=== PATIENT | male | born 1950 | race Hispanic/Latino ===

== ENCOUNTER 2017-11-15 03:16 | Inpatient (IN) | payer BC ==
--- NOTE | 2017-11-15 03:50 | ED PDOC ---
Arrival/HPI - General Chief Complaint: Chest Pain Time Seen by Provider: 11/15/17 03:19 Historian: Patient - History of Present Illness Narrative History of Present Illness (Text): 11/15/17 03:49 Zoran Santiago is a 66 year old male, who denies any significant past medical history, who presents to the Emergency department complaining of chest pain. Patient states he has been experiencing left-sided chest pain radiating to his left shoulder/back for the past 2 days but worsened tonight. Patient states pain is worse with deep inspiration. Patient states he originally attributed symptoms to gas and took Gas-X, but denies any significant relief. Patient denies any fever, chills, shortness of breath, nausea, vomiting, neck pain, headache, dizziness, or any other complaints. Symptom Onset: Gradual Symptom Course: Unchanged Activities at Onset: Light Context: Home Past Medical History - Provider Review Nursing Documentation Reviewed: Yes - Infectious Disease Hx of Infectious Diseases: None - Tetanus Immunization Tetanus Immunization: Unknown - Psychiatric Hx Depression: No Hx Emotional Abuse: No Hx Physical Abuse: No Hx Substance Use: No - Anesthesia Hx Anesthesia: No Hx Anesthesia Reactions: No Hx Malignant Hyperthermia: No - Suicidal Assessment Feels Threatened In Home Enviroment: No Family/Social History - Physician Review Nursing Documentation Reviewed: Yes Family/Social History: Unknown Family HX Smoking Status: Never Smoked Hx Alcohol Use: Yes Frequency of alcohol use: Socially Hx Substance Use: No Hx Substance Use Treatment: No Allergies/Home Meds Allergies/Adverse Reactions: Allergies No Known Allergies Allergy (Verified 11/15/17 03:29) Home Medications: Home Meds Medication Instructions Recorded Confirmed No Known Home Med 11/15/17 11/15/17 Review of Systems - Physician Review All systems were reviewed & negative as marked: Yes - Review of Systems Constitutional: Normal. absent: Fevers Eyes: Normal ENT: Normal Respiratory: Normal. absent: SOB, Cough Cardiovascular: Chest Pain Gastrointestinal: Normal. absent: Abdominal Pain, Diarrhea, Nausea, Vomiting Genitourinary Male: Normal. absent: Dysuria, Frequency, Hematuria, Urinary Output Changes Musculoskeletal: Back Pain. absent: Neck Pain Skin: Normal. absent: Rash Neurological: Normal. absent: Headache, Dizziness Endocrine: Normal Hemo/Lymphatic: Normal Psychiatric: Normal Physical Exam Vital Signs Reviewed: Yes Vital Signs Temp Pulse Resp BP Pulse Ox 03/12/18 03:18 98.5 F 86 17 140/90 96 Temperature: Afebrile Blood Pressure: Normal Pulse: Regular Respiratory Rate: Normal Appearance: Positive for: Well-Appearing, Non-Toxic, Comfortable Pain Distress: None Mental Status: Positive for: Alert and Oriented X 3 - Systems Exam Head: Present: Atraumatic, Normocephalic Pupils: Present: PERRL Extroacular Muscles: Present: EOMI Conjunctiva: Present: Normal Mouth: Present: Moist Mucous Membranes Neck: Present: Normal Range of Motion Respiratory/Chest: Present: Clear to Auscultation, Good Air Exchange. No: Respiratory Distress, Accessory Muscle Use Cardiovascular: Present: Regular Rate and Rhythm, Normal S1, S2. No: Murmurs Abdomen: Present: Normal Bowel Sounds. No: Tenderness, Distention, Peritoneal Signs Back: Present: Normal Inspection Upper Extremity: Present: Normal Inspection. No: Cyanosis, Edema Lower Extremity: Present: Normal Inspection. No: Edema Neurological: Present: GCS=15, CN II-XII Intact, Speech Normal Skin: Present: Warm, Dry, Normal Color. No: Rashes Psychiatric: Present: Alert, Oriented x 3, Normal Insight, Normal Concentration Medical Decision Making ED Course and Treatment: 11/15/17 03:49 Impression: 66 year old male complaining of left-sided chest pain for 2 days, worse tonight. Plan: -- EKG -- Chest X-ray -- Labs, cardiac enzymes, D-dimer -- Reassess and disposition Progress Notes: Reviewed EKG, NSR at 87 bpm. Inferior infarct. Non-specific ST/T wave changes. 11/15/17 04:30 Chest X-ray reviewed, shows left pleural effusion. 11/15/17 05:20 CTA Chest shows: Pulmonary arteries: No CT evidence for pulmonary embolus. Aorta: No acute findings. No thoracic aortic aneurysm. Lungs: Bibasilar left more than right, right middle lobe and lingular nonspecific infiltrates and consolidation are present, consistent with atelectasis or pneumonia. Pleural space: Small left pleural effusion. No pneumothorax. Heart: Small amount of fluid in the superior pericardial recess. Mediastinum: Possible small hiatal hernia. Thyroid: Mild prominence of thyroid gland. Bones/joints: No acute fracture. No dislocation. Soft tissues: Unremarkable. Lymph nodes: Small hilar lymph nodes. Spleen: Left upper quadrant splenule. Adrenals: Normal right adrenal gland. Left adrenal gland is incompletely seen. Kidneys and ureters: Bilateral perinephric scarring may be a sequela of infection, inflammation or aging. Stomach and bowel: Large amount of stool in the colon. Correlation with patient' s clinical history of constipation is recommended. IMPRESSION: 1. No CT evidence for pulmonary embolus. 2. Small left pleural effusion. 3. Bibasilar left more than right, right middle lobe and lingular nonspecific infiltrates and consolidation are present, consistent with atelectasis or pneumonia. Correlation with internal medicine evaluation and further workup or followup as recommended by patient's clinical data. 11/15/17 05:[address] Chang, who is aware and agrees with plan. Accepts pt in to her service. Pt will go to Telemetry observation for chest pain, pleural effusions and pneumonia. Requests Dr. Metcalf on consult. - Lab Interpretations Lab Results: 11/15/17 03:28 11/15/17 03:28 Lab Results 11/15/17 03:28: D-Dimer, Quantitative < 200 11/15/17 03:28: Sodium 138, Potassium 4.1, Chloride 101, Carbon Dioxide 27, Anion Gap 14, BUN 17, Creatinine 1.0, Est GFR ( Amer) > 60, Est GFR (Non- Af Amer) > 60, Random Glucose 101, Calcium 9.9, Total Bilirubin 0.9, AST 46, ALT 41, Alkaline Phosphatase 98, Lactate Dehydrogenase 439, Total Creatine Kinase 88, Troponin I < 0.01, Total Protein 7.5, Albumin 4.1, Globulin 3.4, Albumin/Globulin Ratio 1.2 11/15/17 03:28: PT 11.6, INR 1.02, APTT 31.0 11/15/17 03:28: WBC 9.5, RBC 4.56, Hgb 13.7 L, Hct 40.3 L, MCV 88.4, MCH 30.0, MCHC 34.0, RDW 13.5, Plt Count 201, MPV 9.7, Gran % 61.2, Lymph % (Auto) 25.7, Ellis % (Auto) 11.4 H, Eos % (Auto) 1.5, Baso % (Auto) 0.2, Gran # 5.82, Lymph # (Auto) 2.4, Ellis # (Auto) 1.1 H, Eos # (Auto) 0.1, Baso # (Auto) 0.02 I have reviewed the lab results: Yes - RAD Interpretation Radiology Orders: 11/15/17 03:38 CHEST PORTABLE [RAD] Stat 11/15/17 04:32 ANGIO CHEST PE PROTOCOL [CT] Stat Civil Service Worker: ED Physician, Radiologist - EKG Interpretation Interpreted by ED Physician: Yes Type: 12 lead EKG - Medication Orders Current Medication Orders: Ceftriaxone Sodium (Rocephin 1 Gram Ivpb) 1 gm in 100 mls @ 200 mls/hr IV ONCE STA PRN Reason: Protocol Stop: 11/15/17 05:55 Azithromycin (Zithromax 500mg In Ns) 500 mg in 250 mls @ 166.667 mls/hr IV STAT STA PRN Reason: Protocol Stop: 11/15/17 06:55 Sodium Chloride (Sodium Chloride 0.9%) 1,000 mls @ 100 mls/hr IV .Q10H STA Stop: 11/15/17 15:44 Discontinued Medications Aspirin (Aspirin) 325 mg PO ONCE STA Stop: 11/15/17 04:36 Last Admin: 11/15/17 04:38 Dose: 325 mg - Peteibe Statement The provider has reviewed the documentation as recorded by the Peteibmadi Grady All medical record entries made by the Peteibmadi were at my direction and personally dictated by me. I have reviewed the chart and agree that the record accurately reflects my personal performance of the history, physical exam, medical decision making, and the department course for this patient. I have also personally directed, reviewed, and agree with the discharge instructions and disposition. Disposition/Present on Arrival - Present on Arrival Any Indicators Present on Arrival: No History of DVT/PE: No History of Uncontrolled Diabetes: No Urinary Catheter: No History of Decub. Ulcer: No History Surgical Site Infection Following: None - Disposition Have Diagnosis and Disposition been Completed?: Yes Diagnosis: Chest pain, Pleural effusion, Pneumonia Disposition: HOSPITALIZED Disposition Time: 05:48 Patient Plan: Observation Condition: STABLE Discharge Instructions (ExitCare): Chest Pain (ED) Forms: [employer] [place] (Panamanian)
[2017-11-15 03:55] LABS: BASO # 0.02 K/mm3 (0.0-2.0); BASO % 0.2 % (0.0-3.0); EOS # 0.1 (0.0-0.7); EOS % 1.5 % (1.5-5.0); GRAN # 5.82 (1.4-6.5); GRAN % 61.2 % (50.0-68.0); HEMOGLOBIN 13.7 g/dL (14.0-18.0); LYMPH # 2.4 (1.2-3.4); LYMPH % 25.7 % (22.0-35.0); MEAN CELL VOLUME 88.4 fl (80.0-105.0); MEAN PLATELET VOLUME 9.7 fl (7.0-11.0); MONO # 1.1 (0.1-0.6); MONO % 11.4 % (1.0-6.0); RBC 4.56 10^6/uL (3.5-6.1); RED CELL DISTRIBUTION WIDTH 13.5 % (11.5-14.5); WHITE BLOOD COUNT 9.5 10^3/ul (4.5-11.0)
[2017-11-15 04:07] LABS: INR 1.02 (0.93-1.08); PROTHROMBIN TIME 11.6 SECONDS (9.4-12.5)
[2017-11-15 04:21] LABS: ALB/GLOB RATIO 1.2 (1.1-1.8); ALBUMIN 4.1 g/dL (3.0-4.8); ALT/SGPT 41 U/L (7-56); AST/SGOT 46 U/L (17-59); BLOOD UREA NITROGEN 17 mg/dL (7-21); CALCIUM 9.9 mg/dL (8.4-10.5); GFR AFRICAN-AMERICAN > 60; GFR NON-AFRICAN AMERICAN > 60
[2017-11-15 04:34] LABS: TROPONIN I < 0.01 ng/mL
[2017-11-15] MEDS ORDERED: Iodixanol 320 MG/ML 100 ML BOTTLE IV ONE (04:37)
--- NOTE | 2017-11-15 05:17 | CT ---
EXAM: CT Chest With Intravenous Contrast CLINICAL HISTORY: 66 years old, male; Pain; Chest pain TECHNIQUE: Axial computed tomography images of the chest with intravenous contrast during the arterial phase of enhancement. All CT scans at this facility use one or more dose reduction techniques, viz.: automated exposure control; ma/kV adjustment per patient size (including targeted exams where dose is matched to indication; i.e. head); or iterative reconstruction technique. 676 images are submitted. Coronal reformatted images were created and reviewed. CONTRAST: 96 mL of OMNI 350 administered intravenously. COMPARISON: No relevant prior studies available. FINDINGS: Pulmonary arteries: No CT evidence for pulmonary embolus. Aorta: No acute findings. No thoracic aortic aneurysm. Lungs: Bibasilar left more than right, right middle lobe and lingular nonspecific infiltrates and consolidation are present, consistent with atelectasis or pneumonia. Pleural space: Small left pleural effusion. No pneumothorax. Heart: Small amount of fluid in the superior pericardial recess. Mediastinum: Possible small hiatal hernia. Thyroid: Mild prominence of thyroid gland. Bones/joints: No acute fracture. No dislocation. Soft tissues: Unremarkable. Lymph nodes: Small hilar lymph nodes. Spleen: Left upper quadrant splenule. Adrenals: Normal right adrenal gland. Left adrenal gland is incompletely seen. Kidneys and ureters: Bilateral perinephric scarring may be a sequela of infection, inflammation or aging. Stomach and bowel: Large amount of stool in the colon. Correlation with patient's clinical history of constipation is recommended. IMPRESSION: 1. No CT evidence for pulmonary embolus. 2. Small left pleural effusion. 3. Bibasilar left more than right, right middle lobe and lingular nonspecific infiltrates and consolidation are present, consistent with atelectasis or pneumonia. Correlation with internal medicine evaluation and further workup or followup as recommended by patient's clinical data.
[2017-11-15] MEDS ORDERED: Azithromycin 500MG/NS 250ml 500 MG/250 ML BAG IV STA (05:26)
[2017-11-15] MEDS ORDERED: cefTRIAXone 1 gm 1 GM/100 ML BAG IV STA (05:26)
[2017-11-15] MEDS ORDERED: Sodium Chloride 0.9% 1,000 ML IV STA (05:45)
--- NOTE | 2017-11-15 10:09 | CARD ---
APPROVED REPORT EKG Measurement Heart [id number] <Conclusion> Normal sinus rhythm Small q in 3,F, Cannot rule out Inferior infarct, age undetermined
--- NOTE | 2017-11-15 10:26 | RAD ---
HISTORY: CHEST PAIN COMPARISON: No prior. FINDINGS: LUNGS: No active pulmonary disease. PLEURA: No significant pleural effusion identified, no pneumothorax apparent. CARDIOVASCULAR: Normal. OSSEOUS STRUCTURES: No significant abnormalities. VISUALIZED UPPER ABDOMEN: Normal. OTHER FINDINGS: None. IMPRESSION: No active disease.
[2017-11-15 14:39] VITALS: BMI 29.4
[2017-11-15] MEDS ORDERED: Pneumococcal 23-Valent Vaccine IM ONE (14:39)
[2017-11-15] MEDS ORDERED: Influenza Vaccine 60 mcg/0.5 mL SYR (4YR UP) IM ONE (14:39)
[2017-11-15 20:40] LABS: BLOOD UREA NITROGEN 16 mg/dL (7-21); CALCIUM 9.7 mg/dL (8.4-10.5); GFR AFRICAN-AMERICAN > 60; GFR NON-AFRICAN AMERICAN > 60
[2017-11-15] MEDS: Naproxen 550 mg Tab PO SCH (20:46)
[2017-11-15 20:52] LABS: TROPONIN I < 0.01 ng/mL
[2017-11-15 21:11] LABS: ARTERIAL BLOOD GAS HCO3 25.2 mmol/L (21-28); ARTERIAL BLOOD GAS HEMOGLOBIN 12.7 g/dL (11.7-17.4); ARTERIAL BLOOD GAS O2 CAPACITY 17.9 mL/dl (16-24); ARTERIAL BLOOD GAS O2 CONTENT 17.1 ML/dl (15-23); ARTERIAL BLOOD GAS O2 SAT 95.7 % (95-98); ARTERIAL BLOOD GAS PCO2 38 mm/Hg (35-45); ARTERIAL BLOOD GAS PH 7.43 (7.35-7.45); ARTERIAL BLOOD GAS TCO2 26.4 mmol.L (22-28)
--- NOTE | 2017-11-15 22:52 | CON ---
DATE: 11/15/2017 LOCATION: Patient presently in emergency room 600, bed 1. REASON FOR CONSULTATION: Chest pain. HISTORY OF PRESENT ILLNESS: A 66-year-old male came to the emergency room complaining of pain in the left side of the abdomen and left axillary line of the left lower chest. Patient says with breathing, pain was getting worse. Also, if he lies on the left side, pain gets worse. Patient denies any prior history of angina or any cardiac symptoms. This pain has been there for 2 days. Patient denies any fever, cough, expectoration, any chills. Denies any PND or swelling of legs. PAST MEDICAL HISTORY: Not significant. PERSONAL HISTORY: Denies smoking, drinks only socially. ALLERGIES: DENIES ANY ALLERGIES. MEDICATIONS: Patient is not on any medication. FAMILY HISTORY: Not significant. PHYSICAL EXAMINATION: VITAL SIGNS: Blood pressure 120/80, respirations 18, pulse 78, temperature 98. HEENT: Head: Normocephalic. Eyes: Pupils normal, conjunctivae normal. Nose and Throat: Normal. NECK: JVP low. Carotid equal. THORAX: AP diameter normal. LUNGS: No significant rales. Slightly diminished breath sound on the bases. CARDIOVASCULAR: S1 and S2. ABDOMEN: Soft. No tenderness. No organomegaly. EXTREMITIES: No clubbing. No cyanosis. LABORATORY DATA: WBC 9.5, hemoglobin 13.7, hematocrit 40.3, platelet 201. Sodium 138, potassium 4.1, calcium 9.9. AST and ALT normal. Troponin less than 0.01. Total protein and albumin normal. EKG showed regular sinus rhythm. Chest x-ray done with no active pulmonary disease. CT of the chest shows some mild left pleural effusion, bibasilar left more than right middle lobe and lingular nonspecific infiltrate and consolidation are present consistent with atelectasis or pneumonia. DIAGNOSES: Chest and abdominal pain, atypical for cardiac origin. Patient probably has pneumonia. PLAN: We will do an echocardiogram. Patient has been given ceftriaxone 1 g IV and azithromycin 500 mg IV. We will check lipid profile and TSH. Patient's NT-proB natriuretic peptide is 45.5. Continue antibiotics. We will follow. Rosalio Sabillon MD
--- NOTE | 2017-11-16 03:03 | CP.PCM.PN ---
Subjective - Date & Time of Evaluation Date of Evaluation: 11/16/17 Time of Evaluation: 02:56 - Subjective Subjective: callled by nurse pt has pause of 5.26 sedonds. pt had earlier . pause of 3.05 seconds .bmp ca mg ekg abg and cardiac iso was done. pt was asymptomatic pt is admitted for cp left sided and left sided abdominal pain. Objective - Vital Signs/Intake and Output Vital Signs (last 24 hours): Temp Pulse Resp BP Pulse Ox 97.4 F L 61 18 104/62 95 11/16/17 00:20 11/16/17 00:20 11/16/17 00:20 11/16/17 00:20 11/16/17 00:20 - Medications Medications: Current Medications Acetaminophen (Tylenol 325mg Tab) 650 mg PO Q6H PRN PRN Reason: Fever >100.4 F Ceftriaxone Sodium (Rocephin 1 Gram Ivpb) 1 gm in 100 mls @ 100 mls/hr IVPB DAILY EFE PRN Reason: Protocol Azithromycin (Zithromax 500mg In Ns) 500 mg in 250 mls @ 167 mls/hr IVPB DAILY EFE PRN Reason: Protocol Naproxen (Anaprox Ds) 550 mg PO BID [facility] Last Admin: 11/15/17 20:46 Dose: 550 mg Pantoprazole Sodium (Protonix Ec Tab) 40 mg PO 0630 [facility] - Labs Labs: 11/15/17 20:22 PT 11.6 SECONDS (9.4-12.5) 11/15/17 03:28 INR 1.02 (0.93-1.08) 11/15/17 03:28 APTT 31.0 Seconds (25.1-36.5) 11/15/17 03:28 - Constitutional Appears: No Acute Distress - Head Exam Head Exam: NORMOCEPHALIC - Eye Exam Pupil Exam: PERRL - ENT Exam ENT Exam: Mucous Membranes Moist - Neck Exam Neck Exam: Full ROM - Respiratory Exam Respiratory Exam: Clear to Ausculation Bilateral - Cardiovascular Exam Cardiovascular Exam: RRR, +S1, +S2 - GI/Abdominal Exam GI & Abdominal Exam: Soft - Rectal Exam Rectal Exam: Deferred - Extremities Exam Extremities Exam: Full ROM - Neurological Exam Neurological Exam: Awake - Psychiatric Exam Psychiatric exam: Normal Affect - Skin Skin Exam: Dry Assessment and Plan - Assessment and Plan (Free Text) Assessment: multiple pauses . pt needs to be on stand by external pacer. Plan: called dr ramirez to evaluate for icu.
--- NOTE | 2017-11-16 03:47 | CP.PCM.CON ---
<Nadiya Reyes - Last Filed: 11/16/17 04:08> History of Present Illness - History of Present Illness History of Present Illness: PGY-[address] Flores ICU consult: Sinus pause Mr Santiago, 66 M, came to emergency room c/o pain in left abdomen, left axillary line of left lower chest since Wednesday. The pain was worse during inhalation. pt denies any history of angina, palpitation, dizziness, fever, chills, leg swelling. During the hospital stay, VS stable. CBC, CMP unremarkable. D-Dimer negative. trops negative x 2. Pro-BNP 45.5. Procalc 0.1. Flu screen negative. CXR showed Small left pleural effusion. CTA of chest showed bibasilar infiltrate and consolidation, L > R, R middle lobe and lingular, likely pneumonia. He was on Azithromycin and ceftriaxone. House Doc at night was called by nurse that pt has a pause of 5.26 seconds on tele monitor. Earlier the evening, Pt had a prior pause of 3.05 seconds. BMP, Ca , Mg, ABG, cardiac iso, ekg were done, which were negative. Pt was AAOx3 during interview. Denies headache, fever, chills, chest pain, SOB, N/V, diaphoresis, dizziness. PMH: None PSH: Never FH: Denies family history of cancer SH: Denies smoking, drinks only socially All: NKDA Med: None PMD: Dr. Kg Burdick Past Patient History - Infectious Disease Hx of Infectious Diseases: None - Tetanus Immunizations Tetanus Immunization: Unknown - Past Social History Smoking Status: Never Smoked - HEENT Hx HEENT Problems: Yes (eyeglasses) - MUSCULOSKELETAL/RHEUMATOLOGICAL Hx Falls: No - PSYCHIATRIC Hx Substance Use: No - SURGICAL HISTORY Hx Surgeries: No - ANESTHESIA Hx Anesthesia: No Hx Anesthesia Reactions: No Hx Malignant Hyperthermia: No Meds Allergies/Adverse Reactions: Allergies Allergy/AdvReac Type Severity Reaction Status Date / Time No Known Allergies Allergy Verified 11/15/17 03:29 - Medications Medications: Current Medications Acetaminophen (Tylenol 325mg Tab) 650 mg PO Q6H PRN PRN Reason: Fever >100.4 F Ceftriaxone Sodium (Rocephin 1 Gram Ivpb) 1 gm in 100 mls @ 100 mls/hr IVPB DAILY EFE PRN Reason: Protocol Azithromycin (Zithromax 500mg In Ns) 500 mg in 250 mls @ 167 mls/hr IVPB [facility]ILY [facility] PRN Reason: Protocol Naproxen (Anaprox Ds) 550 mg PO BID [facility] Last Admin: 11/15/17 20:46 Dose: 550 mg Pantoprazole Sodium (Protonix Ec Tab) 40 mg PO 0630 [facility] Physical Exam - Constitutional Appears: No Acute Distress - Head Exam Head Exam: ATRAUMATIC, NORMAL INSPECTION, NORMOCEPHALIC - Eye Exam Eye Exam: EOMI, Normal appearance, PERRL - ENT Exam ENT Exam: Mucous Membranes Moist - Neck Exam Additional comments: supple - Respiratory Exam Respiratory Exam: Clear to Auscultation Bilateral, NORMAL BREATHING PATTERN. absent: Rales, Rhonchi, Wheezes - Cardiovascular Exam Cardiovascular Exam: REGULAR RHYTHM, +S1, +S2 - GI/Abdominal Exam GI & Abdominal Exam: Normal Bowel Sounds, Soft. absent: Tenderness - Extremities Exam Extremities exam: Negative for: calf tenderness, pedal edema - Neurological Exam Neurological exam: Alert, Oriented x3 - Psychiatric Exam Psychiatric exam: Normal Affect, Normal Mood - Skin Skin Exam: Dry, Warm Results - Vital Signs Recent Vital Signs: Last Vital Signs Temp 97.4 F L 11/16/17 02:20 Pulse 61 11/16/17 02:20 Resp 18 11/16/17 02:20 BP 104/62 11/16/17 02:20 Pulse Ox 95 11/16/17 02:20 - Labs Result Diagrams: 11/15/17 03:28 11/15/17 20:22 Labs: Laboratory Results - last 24 hr 11/15/17 11/15/17 20:22 21:07 pCO2 38 pO2 73.0 L HCO3 25.2 ABG pH 7.43 ABG Total CO2 26.4 ABG O2 Saturation 95.7 ABG O2 Content 17.1 ABG Base Excess 1.0 ABG Hemoglobin 12.7 ABG Carboxyhemoglobin 0.4 L POC ABG HHb (Measured) 4.3 ABG Methemoglobin 0.0 ABG O2 Capacity 17.9 Hgb O2 Saturation 95.3 FiO2 21.0 Sodium 139 Potassium 3.9 Chloride 102 Carbon Dioxide 28 Anion Gap 13 BUN 16 Creatinine 1.1 Est GFR ( Amer) > 60 Est GFR (Non-Af Amer) > 60 Random Glucose 145 H Calcium 9.7 Magnesium 2.0 Lactate Dehydrogenase 377 Total Creatine Kinase 75 Troponin I < 0.01 Assessment & Plan - Assessment and Plan (Free Text) Plan: Mr Santiago, 66 M, came to emergency room c/o pain in left abdomen, left axillary line of left lower chest since Wednesday. Pt likely has atypical chest pain, pleuritis in nature. CTA of chest showed bibasilar infiltrate and consolidation , L > R, R middle lobe and lingular, likely pneumonia. He was on Azithromycin and ceftriaxine. He was found to have two episodes of sinus pause tonight: (1) a pause of 5.26 seconds on tele monitor. (2) Earlier the evening, Pt had a prior pause of 3.05 seconds. BMP, Ca, Mg, ABG, cardiac iso, ekg were done, which were negative. Pt was AAOx3 during interview without any acute complaint. Repeat BP 111/71, SaO2 95% Sinus Pause, 5 seconds, asymptomatic Vs complete heart block - Hold Azithromycin, for possible QT prolong effect - electrolytes within normal limit - standby external pacing, but do not pace - continue monitor on telemetry - Per Dr. Meeks: If the 3rd pause happens, put dopamine gtt on 3 mcg. It could be triggered by obstructive sleep apnea. - May need to transfer to ICU for the infusion - Repeat EKG s/r/d/w Dr. Flores <Chuck Flores Q - Last Filed: 11/16/17 05:34> Meds - Medications Medications: Current Medications Acetaminophen (Tylenol 325mg Tab) 650 mg PO Q6H PRN PRN Reason: Fever >100.4 F Ceftriaxone Sodium (Rocephin 1 Gram Ivpb) 1 gm in 100 mls @ 100 mls/hr IVPB DAILY [facility] PRN Reason: Protocol Naproxen (Anaprox Ds) 550 mg PO BID [facility] Last Admin: 11/15/17 20:46 Dose: 550 mg Pantoprazole Sodium (Protonix Ec Tab) 40 mg PO 0630 [facility] Results - Vital Signs Recent Vital Signs: Last Vital Signs Temp 97.4 F L 11/16/17 02:20 Pulse 59 L 11/16/17 05:01 Resp 18 11/16/17 02:20 BP 104/62 11/16/17 02:20 Pulse Ox 95 11/16/17 02:20 - Labs Result Diagrams: 11/15/17 03:28 11/15/17 20:22 Labs: Laboratory Results - last 24 hr 11/15/17 11/15/17 20:22 21:07 pCO2 38 pO2 73.0 L HCO3 25.2 ABG pH 7.43 ABG Total CO2 26.4 ABG O2 Saturation 95.7 ABG O2 Content 17.1 ABG Base Excess 1.0 ABG Hemoglobin 12.7 ABG Carboxyhemoglobin 0.4 L POC ABG HHb (Measured) 4.3 ABG Methemoglobin 0.0 ABG O2 Capacity 17.9 Hgb O2 Saturation 95.3 FiO2 21.0 Sodium 139 Potassium 3.9 Chloride 102 Carbon Dioxide 28 Anion Gap 13 BUN 16 Creatinine 1.1 Est GFR ( Amer) > 60 Est GFR (Non-Af Amer) > 60 Random Glucose 145 H Calcium 9.7 Magnesium 2.0 Lactate Dehydrogenase 377 Total Creatine Kinase 75 Troponin I < 0.01 Attending/Attestation - Attestation I have personally seen and examined this patient.: Yes I have fully participated in the care of the patient.: Yes I have reviewed all pertinent clinical information: Yes Notes (Text): 11/16/17 05:15 I agree with the above mentioned note and exam by the resident with the addition /exception of the followin66 y/o male without a significant PMHx was admitted to the hospital for atypical chest pain. He was found to have atelectasis and ?consolidation, he was being treated for pneumonia with IV Antibiotics. I was asked to evaluate the patient by Dr. Fabiola Lowery due to the patient having 2 episodes of sinus pause. The first lasting approximately 2 seconds and the next a little over 4 seconds. The patient reports being asleep all night and offers no complaints at all. He specifically denied any complaints of new chest pain, palpitations, light headedness, dizziness or shortness of breath. Electrolytes are WNL; EKG shows no acute changes and the pause on the telemetry strip still conducted p-waves. Recommend holding azithromycin to prevent prolongation of QT (slightly over 400 on the last EKG), continue monitoring on telemetry. Case was discussed between the medical economics consultant and Dr. Sabillon who recommended a fixed dose dopaminedrip in the event of a 3rd sinus pause. Asymptomatic sinus pause does not require treatment. The patient does not require a transfer to the ICU and may remain on the telemetry floor.
[2017-11-16] MEDS: Pantoprazole 40 mg EC Tab PO SCH (06:04)
[2017-11-16 06:45] LABS: HDL CHOLESTEROL 59 mg/dL (29-60)
--- NOTE | 2017-11-16 06:53 | HP ---
HISTORY OF PRESENT ILLNESS: The patient is 66-year-old male who came to emergency room because of left-sided chest pain, going through the chest towards the back, radiating to the left shoulder and the arm. Denies any palpitation. Does complain of pain getting worse on taking deep breath. Denies any fever. No history of chills. No nausea or vomiting, no diarrhea. PAST MEDICAL HISTORY: Not significant. MEDICATIONS: He does not take any medication at home. ALLERGIES: NOT ALLERGIC TO ANY MEDICATION. SOCIAL HISTORY: Denies smoking; drinking - socially drinks only. REVIEW OF SYSTEMS: Significant for left-sided chest pain. PHYSICAL EXAMINATION: GENERAL: He is awake, alert and able to communicate. VITAL SIGNS: He is afebrile, pulse 76, respirations 20, blood pressure 127/85. LUNGS: Bilateral fair airflow. HEART: S1 and S2 audible. ABDOMEN: Soft, nontender. No rebound. No guarding. NEUROLOGIC: He is awake, alert, oriented and communicative. LABORATORY DATA: WBC 9.5, hemoglobin 13.7, hematocrit 40.3, platelet . PT 11.6, INR 1.02. Chemistry: Sodium 138, potassium 4.1, chloride 101, CO2 is 17, creatinine 1.0. Blood sugar . LFTs are within normal limits. Flu test is negative. CT angio is unremarkable. EKG, normal sinus rhythm. X-ray chest is unremarkable. ASSESSMENT: 1. Chest pain, probably noncardiac. 2. Left-sided infiltrate secondary to community-acquired pneumonia. 3. Right middle lobe and lingular infiltrate; however, procalcitonin is negative. PLAN: Patient has been empirically started on IV antibiotics per ID. We will monitor. We will follow up troponin in the a.m. I will also start him on antiinflammatory, and echocardiogram has been requested, and ID consult by Dr. Metcalf and Cardiology consult by has been requested. Stella Chang MD
[2017-11-16 06:57] LABS: LDL CHOLESTEROL 90 mg/dL (0-129)
[2017-11-16] MEDS ORDERED: Azithromycin 500MG/NS 250ml 500 MG/250 ML BAG IVPB SCH (10:00)
[2017-11-16] MEDS: cefTRIAXone 1 gm 1 GM/100 ML BAG IVPB SCH (10:07)
[2017-11-16] MEDS: Naproxen 550 mg Tab PO SCH ×2 (10:07→18:25)
--- NOTE | 2017-11-16 15:04 | PN ---
DATE: 11/16/2017 LOCATION: Patient in room 370, bed 2. REASON FOR CONSULTATION: Chest pain. HISTORY OF PRESENT ILLNESS: This is a 66-year-old male who was admitted to the Emergency Room complaining of left-sided abdominal and chest pain mostly with inspiration. Patient had no prior history of any cardiac problem. Patient, during the night, monitor showed a pause of 3 seconds and 3.5 seconds, asymptomatic. Patient had no previous history of any medical disease or not on any medications. Patient's chest pain is relieved now and he denies any dizziness or shortness of breath or palpitation. PHYSICAL EXAMINATION VITAL SIGNS: Blood pressure 104/62, respirations 18, pulse 61, temperature 97.4. HEENT: Head is normocephalic. Eyes: Pupils normal. Conjunctivae normal. Nose and throat are normal. LUNGS: No significant rales. CARDIOVASCULAR: S1 and S2. ABDOMEN: Soft. No tenderness. No organomegaly. Bowel sounds normal. EXTREMITIES: No clubbing. No cyanosis. LABORATORY DATA: WBC 9.5, hemoglobin 13.7, hematocrit 40.3, platelet 201,000. Sodium 139, potassium 3.9. Troponin x2 negative. TSH is normal at 1.31. Cholesterol is 181, triglycerides 74, HDL 59, LDL 90. Chest x-ray does not show any acute disease, but CAT scan of the chest showed mild left pleural effusion, bibasilar left more than right middle lobe and lingular nonspecific infiltrates and consolidation, which can be consistent with atelectasis or pneumonia. DIAGNOSES: Chest pain, abdominal pain, probably related to pneumonia. Patient also getting sinus pauses of 3 to 3.5 seconds, asymptomatic. PLAN: Echo has been ordered. We will also do nuclear stress test to evaluate response of the heart rate to exercise. In the meantime, patient is asymptomatic from sinus pauses and if it continues to reoccur, we will put dopamine drip 2.5 mcg and presently, the patient is on antibiotics. We will continue that and we will follow. Rosalio Sabillon MD
--- NOTE | 2017-11-16 16:33 | PN ---
DATE: SUBJECTIVE: The patient is 66 years old, who came in with left-sided chest pain and back pain and was hurting upon taking deep breath. Found to have lingular infiltrate. Last night event noted the patient had 2 pauses overnight and he was asymptomatic. Landscape Photographer was notified. The patient is scheduled to have stress test done tomorrow. Otherwise, He is doing well. PHYSICAL EXAMINATION: GENERAL: He is awake, alert, oriented, communicative. VITAL SIGNS: He is afebrile, pulse 59, respirations 18, blood pressure 104/62. LUNGS: Bilateral good airflow. No rhonchi or crackle. HEART: S1 and S2 audible. ABDOMEN: Soft. Nontender. No rebound. No guarding. NEUROLOGIC: The patient is awake, alert, oriented, communicative, ambulatory. LABORATORY EXAM: His TSH is 1.31. Procalcitonin is 0.10. His blood cultures are negative. Echocardiogram is pending. ASSESSMENT AND PLAN: 1. Chest pain, etiology is unclear. 2. Lingular infiltrate. Could be pleuritic pain. Discussed with Dr. Sabillon. The patient is scheduled to have a stress test done tomorrow. His Zithromax has been discontinue. We will switch it to doxycycline to cover for atypical and we will reevaluate the patient in the a.m. Stella Chang MD
--- NOTE | 2017-11-16 16:51 | CP.PCM.CON ---
History of Present Illness - History of Present Illness History of Present Illness: 66 year old male with no signficant PMH came [place] [facility] [place] of left sided chest pain for the past 2-3 days, associated with inspiration. He initially thought it was gas pains but it did not get resolved by antacids. He has dry cough, no fever or chills, no nausea or vomiting, no SOB at rest, no rhinorrhea or sore throat, no abdominal pain, no diarrhea, no dysuria. CT chest was showing some consolidations on the lower lobes, left greater than right. Infectious Diseases consult is requested to further evaluate and manage. Review of Systems - Review of Systems All systems: reviewed and no additional remarkable complaints except (as per HPI ) Past Patient History - Infectious Disease Hx of Infectious Diseases: None - Tetanus Immunizations Tetanus Immunization: Unknown - Past Social History Smoking Status: Never Smoked - PSYCHIATRIC Hx Depression: No Hx Emotional Abuse: No Hx Physical Abuse: No Hx Substance Use: No - SURGICAL HISTORY Hx Surgeries: No - ANESTHESIA Hx Anesthesia: No Hx Anesthesia Reactions: No Hx Malignant Hyperthermia: No Meds Allergies/Adverse Reactions: Allergies Allergy/AdvReac Type Severity Reaction Status Date / Time No Known Allergies Allergy Verified 11/15/17 03:29 - Medications Medications: Current Medications Sodium Chloride (Sodium Chloride 0.9%) 1,000 mls @ 100 mls/hr IV .Q10H STA Stop: 11/15/17 15:44 Last Admin: 11/15/17 07:30 Dose: 100 mls/hr Physical Exam - Constitutional Appears: Non-toxic, No Acute Distress - Head Exam Head Exam: NORMAL INSPECTION - ENT Exam ENT Exam: Mucous Membranes Moist - Neck Exam Neck exam: Negative for: Meningismus - Respiratory Exam Respiratory Exam: Decreased Breath Sounds - Cardiovascular Exam Cardiovascular Exam: +S1, +S2 - GI/Abdominal Exam GI & Abdominal Exam: Soft. absent: Tenderness Results - Vital Signs Recent Vital Signs: Last Vital Signs Temp 98 F 11/15/17 07:35 Pulse 78 11/15/17 07:35 Resp 18 11/15/17 07:35 BP 119/77 11/15/17 07:35 Pulse Ox 98 11/15/17 07:35 - Labs Result Diagrams: 11/15/17 03:28 11/15/17 20:22 Assessment & Plan - Assessment and Plan (Free Text) Plan: Assessment Rule out bilateral community-acquired pneumonia Plan Started on Rocephin and Zithromax day 2 and follow up PCT, blood cx will monitor clinically
[2017-11-16] MEDS ORDERED: DOPamine 400mg/250ml D5W 400 MG/250 ML BAG IV PRN (18:59)
--- NOTE | 2017-11-17 07:14 | CARD ---
APPROVED REPORT EKG Measurement Heart [id number] <Conclusion> Normal sinus rhythm LVH by voltage Small q wave in 2, lll, AVF
[2017-11-17] MEDS: Pantoprazole 40 mg EC Tab PO SCH (08:35)
--- NOTE | 2017-11-17 09:59 | CARD ---
APPROVED REPORT EXAM: Two-dimensional and M-mode echocardiogram with Doppler and color Doppler. INDICATION Chest Pain 2D DIMENSIONS Left Atrium (2D)3.7 (1.6-4.0cm)IVSd1.2 (0.7-1.1cm) LVDd4.6 (3.9-5.9cm)PWd1.0 (0.7-1.1cm) LVDs3.2 (2.5-4.0cm)FS (%) 31.9 % LVEF (%)60.0 (>50%) M-Mode DIMENSIONS Aortic Root2.50 (2.2-3.7cm)Aortic Cusp Exc.1.90 (1.5-2.0cm) Aortic Valve AoV Peak Vuvggaun293.0cm/Tommy Peak GR.8mmHg Mitral Valve MV E Wdmyptch82.3cm/sMV A Kabribgb91.1cm/sE/A ratio1.3 TDI E/Lateral E'0.0E/Medial E'0.0 Tricuspid Valve TR Peak [id number]/sRAP [id number] Peak Gr.31mmHg [id number] LEFT VENTRICLE The left ventricle is normal size. There is normal left ventricular wall thickness. The left ventricular function is normal.EF-55-60% There is normal LV segmental wall motion. The left ventricular diastolic function is normal. No left ventricle thrombus noted on this study. There is no ventricular septal defect visualized. There is no left ventricular aneurysm. There is no mass noted in the left ventricle. RIGHT VENTRICLE The right ventricle is mildly dilated. There is normal right ventricular wall thickness. Systolic function is mildly reduced. ATRIA The left atrium size is normal. The right atrium is borderline dilated. The interatrial septum is intact with no evidence for an atrial septal defect. AORTIC VALVE The aortic valve is thickened but opens well. No aortic regurgitation is present. There is no aortic valvular stenosis. There is no aortic valvular vegetation. MITRAL VALVE The mitral valve is thickened but opens well. Mitral regurgitation is trace to mild. There is no mitral valve stenosis. There is no evidence of mitral valve prolapse. TRICUSPID VALVE The tricuspid valve leaflets are thickened , but open well. There is moderate tricuspid regurgitation.RVSP-41 mmof Hg. There is no tricuspid valve stenosis. There is no tricuspid valve prolapse or vegetation. PULMONIC VALVE The pulmonic valve is mildly thickened. There is trace to mild pulmonic valvular regurgitation. There is no pulmonic valvular stenosis. GREAT VESSELS The aortic root is normal in size. The ascending aorta is normal in size. The pulmonary artery is normal. The IVC is normal in size and collapses >50% with inspiration. PERICARDIAL EFFUSION There is no pleural effusion. There is no pericardial effusion. <Conclusion> The left ventricle is normal size. There is normal left ventricular wall thickness. The left ventricular function is normal.EF-55-60% Mitral regurgitation is trace to mild. There is moderate tricuspid regurgitation.RVSP-41 mmof Hg. There is trace to mild pulmonic valvular regurgitation. The IVC is normal in size and collapses >50% with inspiration. There is no pericardial effusion. no vegetation noted.
[2017-11-17] MEDS: Naproxen 550 mg Tab PO SCH ×2 (13:34→19:06)
[2017-11-17] MEDS: cefTRIAXone 1 gm 1 GM/100 ML BAG IVPB SCH (13:40)
--- NOTE | 2017-11-17 14:46 | PN ---
DATE: REASON FOR CONSULTATION AND FOLLOWUP: Chest pain, left-sided atypical; pneumonia; sick sinus syndrome; multiple pauses. SUBJECTIVE: The patient denies any chest pain, shortness of breath, or any palpitations. Denies any dizziness, denies any syncope or near syncope. OBJECTIVE: GENERAL: Not in apparent distress, lying flat on the bed. Last night, the patient's recurrent pauses, 5 second and 6 second, dopamine started; since then, no further episode of pause noted. VITAL SIGNS: Temperature afebrile, heart rate 63, blood pressure 102/64. HEENT: PERRLA. Extraocular muscles intact. NECK: Supple. No carotid bruit or thyromegaly. CHEST: Clear to auscultation. HEART: S1 ad S2, regular. ABDOMEN: Soft. EXTREMITIES: Clubbing and cyanosis negative. LABORATORY DATA: Blood workup as follows: WBC 9.5, hemoglobin , hematocrit 40.3, platelet count 201. Chemistry shows sodium , potassium 3.9, chloride 102, carbon dioxide 28, anion gap of 13. BUN 16, creatinine 1.1. Random sugar 145. TSH 1.31. Lyme titer less than 0.9, is negative. IMPRSSION: A 66-year-old male with no significant past medical history admitted with chest pain, most likely secondary to pneumonia. During the telemetry, the patient showed multiple pauses and 2 to 3 second pause, last night more pauses 5 to 6 second pause, started on Primacor, since no further episode of pause noted. CT chest consistent with left pleural effusion and bilateral infiltrate. The patient started dopamine since then the patient is stable. Lyme titer was done that was negative. PLAN: To do the stress test today to see any ischemia in the right coronary artery, also to assess any evidence of chronotropic incompetence. If ischemia is negative, we will schedule for pacemaker dual chamber tomorrow. Discussed with the patient. We will review the echo once it is done and I will review the stress test once it is done and if no ischemia, we will put the pacemaker tomorrow. We will keep n.p.o. after 12 midnight for pacemaker tomorrow at 9:30. Interim continue dopamine, continue broad-spectrum antibiotics as per ID for pneumonia. We will hold the dopamine during the stress test. Discussed with the patient. We will repeat the blood workup in the morning. Thank you Dr. Chang for providing us the opportunity in taking care of the patient Zoran Santiago. Rosalio Lopez MD
[2017-11-17] MEDS ORDERED: DOPamine 400mg/250ml D5W 400 MG/250 ML BAG IV SCH ×3 (15:42→19:23)
--- NOTE | 2017-11-17 20:38 | PN ---
DATE: SUBJECTIVE: The patient is a 66-year-old [place] male who came in with chest pain radiating towards the back, was found to have pneumonia, has been on IV antibiotics and during monitoring, he was found to have pauses, two pauses and last night also, so he was started on dopamine drip. Patient underwent stress test, seems to be doing well. PHYSICAL EXAMINATION: GENERAL: He is awake, alert, oriented, communicative. VITAL SIGNS: He is afebrile, pulse 69, respirations 19, blood pressure 102/67. LUNGS: Bilateral good air flow. No rhonchi or crackle. HEART: S1, S2 audible. ABDOMEN: Soft, nontender. No rebound, no guarding. NEUROLOGIC: Patient is awake, alert, communicative. LABORATORY DATA: Procalcitonin is 0.1, TSH is 1.31. Lyme titer is negative. HIV test is negative. Flu test is negative. ASSESSMENT: 1. Chest pain, probably noncardiac. 2. Lingular infiltrate. 3. Multiple 2 to 3-second pauses and last night was 5 to 6 seconds, got corrected by dopamine drip. PLAN: Discussed with Dr. Sabillon also. Patient's stress test is unremarkable, so underlying ischemia has been ruled out. Patient needs pacemaker. I spoke to patient, he is reluctant to have it done. He will talk to his other family member and might want to have a second opinion; however, Dr. Lopez's input noted and appreciated. He is planning to have pacemaker done tomorrow if patient agrees. Stella Chang MD
--- NOTE | 2017-11-17 21:23 | CARD ---
APPROVED REPORT Protocol: DEBBI Test Type: Sestamibi Stress Test Attending Physician: Dr. Rosalio Sabillon Referring Physician: Dr. Stella Chang Test Indications: Chest Pain Height:5 ft 10 in Weight:205lbs Medications: dopamine Medical History: 66 year old male with no significant medical history Target HR: 156 bpm Resting ECG: RSR. Resting Heart Rate: 81 bpm Resting Blood Pressure: 104/58mmHg Submaximum (85%): 133 bpm POST EXERCISE Reason for Termination: Fatigue Target HR: Yes Max HR: 157 bpm 100% of Maximum Predicted HR: 156 bpm Exercise duration: 10:01 min:sec, 4 Stage Exercise capacity: 11.7METs Max Blood Pressure: 110/68mmHg Blood Pressure response to exercise: normal resting BP - appropriate response Heart Rate response to exercise: appropriate Chest Pain: No, none Angina index: 0 Arrhythmia: Yes, Occasional PACs and PJCs. ST Change: No, none Deviation: 0 mm TEST SUMMARY [id number]/.0. [id number]/58.0. EXERCISESTAGE 103:[id number]/66.0. EXERCISESTAGE 203:[id number]/66.0. EXERCISESTAGE 303:[id number]/66.0. EXERCISESTAGE 401:[id number]/.4. [id number]/68.0. INTERPRETATION Stress EKG Conclusion: MYOVIEW NUCLEAR STRESS TEST STOPPED AFTER 10 MINUTES OF DEBBI PROTOCOL DUE TO FATIGUE. PATIENT ACHIEVED 100% OF PREDICTED HEART RATE. NO CHEST PAIN. NO ST-T CHANGES. NUCLEAR SCAN REPORT PENDING. Signed by Rosalio Sabillon Electronically Approved: 11/17/2017 11:56:57 EXAM: Myocardial Perfusion REST/STRESS Stress Test Type: Exercise Treadmill Imaging Protocol Rest Spect myocardial perfusion imaging was performed in supine position 50 minutes following the injection of 10.3 mCi of Tc-99 Myoview. At peak stress, the patient was injected intravenously with 30.1mCi of Tc-99 tetrofosmin after an exercise time of 10 minutes and 1 seconds. Gated Stress Spect was performed 70 minutes after intravenous Tc-99 Myoview injection. The images were gated to evaluate regional wall motion and calculate ventricular ejection fraction.Images were reconstructed using backfilter projection method in short horizontal and verticle long axis. Spect slices were generated. LV Perfusion The quality of the study is good. The left ventricle is normal in size. The right ventricle is unremarkable. The lung uptake is normal. The distribution of tracer reveals moderately and diffusely decreased perfusion in the inferior wall on the stress study. The remainder of the LV myocardium is unremarkable. The rest myocardial perfusion study shows no significant change. Wall Motion Wall motion study shows good contractility of the left ventricle. LVEF = 60%. Conclusion 1. Essentially normal SPECT myocardial perfusion study. 2. Fixed, inferior defect is most likely due to diaphrgmatic attenuation. 3. Normal gated wall motion and thicknening of the left ventricle.
[2017-11-18] MEDS: Pantoprazole 40 mg EC Tab PO SCH (05:56)
[2017-11-18 07:44] LABS: BASO # 0.02 K/mm3 (0.0-2.0); BASO % 0.3 % (0.0-3.0); EOS # 0.6 (0.0-0.7); EOS % 7.1 % (1.5-5.0); GRAN # 4.23 (1.4-6.5); HEMOGLOBIN 13.6 g/dL (14.0-18.0); LYMPH # 2.5 (1.2-3.4); LYMPH % 31.5 % (22.0-35.0); MEAN CELL VOLUME 86.9 fl (80.0-105.0); MEAN CORPUSCULAR HEMOGLOBIN 29.3 pg (25.0-35.0); MEAN CORPUSCULAR HGB CONC 33.7 g/dl (31.0-37.0); MEAN PLATELET VOLUME 9.2 fl (7.0-11.0); MONO # 0.7 (0.1-0.6); MONO % 8.1 % (1.0-6.0); RBC 4.64 10^6/uL (3.5-6.1); RED CELL DISTRIBUTION WIDTH 13.2 % (11.5-14.5)
[2017-11-18 08:00] LABS: ALB/GLOB RATIO 1.3 (1.1-1.8); ALBUMIN 4.1 g/dL (3.0-4.8); ALT/SGPT 34 U/L (7-56); AST/SGOT 25 U/L (17-59); BLOOD UREA NITROGEN 15 mg/dL (7-21); CALCIUM 9.6 mg/dL (8.4-10.5); GFR AFRICAN-AMERICAN > 60; GFR NON-AFRICAN AMERICAN > 60
--- NOTE | 2017-11-18 08:21 | CP.PCM.PN ---
Subjective - Date & Time of Evaluation Date of Evaluation: 11/18/17 Time of Evaluation: 07:10 - Subjective Subjective: Seen and examined by me and Dr. Lopez Reason for consultation and follow up: 66 year old, admitted for chest pain most likely secondary to pneumonia, Telemetry showed multiple pauses, 5-6 seconds pauses, sick sinus syndrome Subjective: Lying in bed, no distress, denies chest pain and shortness of breath or palpitation. Objective - Vital Signs/Intake and Output Vital Signs (last 24 hours): Temp Pulse Resp BP Pulse Ox 97.9 F 69 20 106/67 98 11/18/17 06:00 11/18/17 06:00 11/18/17 06:00 11/18/17 06:00 11/18/17 06:00 Intake and Output: 11/18/17 11/18/17 06:59 18:59 Intake Total 303 Output Total 0 Balance 303 - Medications Medications: Current Medications Acetaminophen (Tylenol 325mg Tab) 650 mg PO Q6H PRN PRN Reason: Fever >100.4 F Doxycycline Hyclate (Doryx) 100 mg PO Q12 ON LICENSE OF [facility] Last Admin: 11/17/17 21:23 Dose: 100 mg Ceftriaxone Sodium (Rocephin 1 Gram Ivpb) 1 gm in 100 mls @ 100 mls/hr IVPB DAILY EFE PRN Reason: Protocol Last Admin: 11/17/17 13:40 Dose: 100 mls/hr Dopamine HCl/Dextrose (Dopamine 400mg/250ml D5w) 400 mg in 250 mls @ 8.973 mls/ hr IV .Q24H EFE PRN Reason: 2.5 MCG/KG/MIN Last Admin: 11/17/17 19:57 Dose: 8.973 mls/hr Naproxen (Anaprox Ds) 550 mg PO BID ON LICENSE OF [facility] Last Admin: 11/17/17 19:06 Dose: Not Given Pantoprazole Sodium (Protonix Ec Tab) 40 mg PO 0630 ON LICENSE OF [facility] Last Admin: 11/18/17 05:56 Dose: 40 mg - Labs Labs: 11/18/17 07:00 11/18/17 07:00 PT 11.6 SECONDS (9.4-12.5) 11/15/17 03:28 INR 1.02 (0.93-1.08) 11/15/17 03:28 APTT 31.0 Seconds (25.1-36.5) 11/15/17 03:28 - Constitutional Appears: Well, No Acute Distress - Head Exam Head Exam: NORMAL INSPECTION - Eye Exam Eye Exam: Normal appearance Pupil Exam: NORMAL ACCOMODATION - ENT Exam ENT Exam: Mucous Membranes Moist, Normal Exam - Neck Exam Neck Exam: Normal Inspection - Respiratory Exam Respiratory Exam: Clear to Ausculation Bilateral, NORMAL BREATHING PATTERN - Cardiovascular Exam Cardiovascular Exam: Irregular Rhythm, +S1, +S2 Additional comments: Sick Sinus Syndrome - GI/Abdominal Exam GI & Abdominal Exam: Soft, Normal Bowel Sounds - Extremities Exam Extremities Exam: Normal Capillary Refill - Neurological Exam Neurological Exam: Alert, Awake, Oriented x3 - Psychiatric Exam Psychiatric exam: Normal Affect, Normal Mood - Skin Skin Exam: Dry, Intact, Normal Color, Warm Assessment and Plan - Assessment and Plan (Free Text) Assessment: Impression: 66 year old, admitted for chest pain most likely secondary to pneumonia, Telemetry showed multiple pauses, 5-6 seconds pauses,started on Dopamine at 2.5 mcg/kg/min. Lyme titer negative. Normal Stress test 11/17/17, LVEF 60%, Normal myocardial perfusion, Sick sinus syndrome, denies any other medical history. Plan: Kept NPO For Permanent pacemaker insertion today for sick sinus syndrome Stable vital signs On Dopamine At 2.5 mcg/kg/min Will follow up Plan and treatment discussed with Dr. Lopez
[2017-11-18] MEDS: cefTRIAXone 1 gm 1 GM/100 ML BAG IVPB SCH ×2 (09:16→13:14)
[2017-11-18] MEDS: Naproxen 550 mg Tab PO SCH ×2 (09:18→18:38)
--- NOTE | 2017-11-18 13:35 | PN ---
DATE: SUBJECTIVE: The patient is a 66-year-old seen and examined, sitting in chair, was at bedside, just did not decide yet if they want to go for pacemaker. They are not very sure if they should have it done in this hospital or the other hospital. PHYSICAL EXAMINATION GENERAL: He is awake, alert, oriented, communicative. VITAL SIGNS: He is afebrile, pulse 69, respirations 20, blood pressure 106/67. LUNGS: Bilateral good air flow. No rhonchi or crackle. HEART: S1 and S2 audible. ABDOMEN: Soft, nontender. No rebound, no guarding. NEUROLOGICAL: The patient is awake, alert, oriented, communicative. LABORATORY DATA: WBC is 8, hemoglobin 13, hematocrit 40, platelets 262,000. Chemistry: Sodium 142, potassium 4.1, chloride 105, CO2 26, BUN 16, creatinine 0.9, blood sugar of 99. Flu test is negative. Lyme titer is negative. His stress test seems to be unremarkable. ASSESSMENT 1. Lingular infiltrate. 2. Multiple pauses ranging from 3 second to 5 second, currently on dopamine. 3. Right middle lobe infiltrate. PLAN: The patient is in the process of deciding where he want to have this procedure done. Once they let us know, we will proceed. All arrangement will be made to transfer the patient to outside facility. Stella Chang MD
[2017-11-18] MEDS ORDERED: Midazolam 2 MG/2 ML VIAL ONE ×2 (14:16→14:56)
[2017-11-18] MEDS ORDERED: Lidocaine 2% Inj (20ml) ONE (14:16)
[2017-11-18] MEDS ORDERED: HEPARIN SODIUM/NS 0 ML IV ONE (14:17)
--- NOTE | 2017-11-18 17:13 | CPOSTOP ---
DATE: 11/18/2017 CARDIAC SHORT STORY WRITER PROCEDURE POSTPROCEDURE NOTE TYPE OF PROCEDURE: Implantation of permanent pacemaker. OPERATING PHYSICIAN: Rosalio Lopez MD. CUSTOMER SERVICE SPECIALIST: Carmen, rfid technician. TYPE OF ANESTHESIA: Moderate conscious sedation. Total dose of 2 mg Versed and 100 of fentanyl, which is given, periodically started 1 mg of Versed, 50 of fentanyl, then another dose was given. PRE-PROCEDURE DIAGNOSES: Complete heart block; multiple pauses, longest being 6-second pause. PROCEDURE PERFORMED: Implantation of a dual-chamber permanent pacemaker, MRI safe. FINDINGS: Preprocedure complete heart block multiple times, so implantation of pacemaker was done. FINAL DIAGNOSIS: Implantation of permanent pacemaker. POST PROCEDURE CONDITION: The patient is stable. VASCULAR ACCESS: Left subclavian vein. CLOSURE DEVICE: None. Dermabond dressing applied. TOTAL RADIATION DOSE: 3210 milligray unit. TOTAL FLUORO TIME: 4 minutes. The patient underwent implantation of a dual-chamber pacemaker, MRI safe. The patient is stable and possible discharge home tomorrow. Follow up in [address] Lopez. Thank you, Dr. Chang for providing us the opportunity in taking care of the patient, Zoran Santiago. Rosalio Lopez MD
--- NOTE | 2017-11-18 17:15 | CARD ---
APPROVED REPORT HISTORY The Patient is a 66 year-old male with a history of pneumonia, chest pain but multiple pauses 3seconds, 5 senods and 6 seconds on multiple occassion on multiple days without meds and Negative stress myoview PROCEDURES Insertion Dual Chamber Pacemaker INDICATIONS Sick Sinus Syndrome High grade A V block [employer]SCIOUS [employer]ATION [employer]ENTS Versed Fentanyl IMPLANTED DEVICES Medtronic [id number].... Ventricular Lead Medtronic [id number] .... Atrial Lead Medtronic [id number] ADVISA MRI ....pulse generator OPERATIVE NOTE The patient was brought to the Cardiac Catheterization Laboratory in a fasting state and was prepped and draped in a sterile manner. The left subclavian region was infiltrated with 2% Lidocaine, subcutaneous anesthesia. A transverse incision was made in the left upper chest cavity. The subcutaneous pocket was formed via blunt dissection. Percutaneous venous access was achieved and an introducer sheath was inserted into the Lt Subclavian vein. Through the introducer sheaths, the atrial and ventricular lead wires were positioned in the right atrial apppendage and right ventricular apex respectively, utilizing fluorscopic guidance. The atrial and ventricular leads were advanced over the wires under fluoroscopic guidance and positioned in the right atria and right ventricle respectively. THE ATRIAL ELECTRODE PARAMETERS P WAVE 4.2 THRESHOLD0.5 RESISTANCE 561 THE VENTRICULAR ELECTRODE PARAMETERS R WAVE 8.0 THRESHOLD0.5 RESISTANCE 666 The atrial and ventricular leads were then secured using silk 0 sutures. The subcutaneous pocket was irrigated with Betadine.The atrial and ventricular leads were attached to the appropriate receptacles on the pulse generator and set screws firmly tightened to insure adequate contact and stability. The leads and pulse generator were placed into the subcutaneous pocket. Sharp and sponge counts were confirmed to be correct. At this time the pocket was closed subcutaneously with a Vicryl 4.0 and the skin was closed with a Vicryl 3.0 .The operative site was dressed in sterile fashion. The patient tolerated the procedure well and was transferred tothe floor in stable condition. COMPLICATIONS The patient tolerated the procedure well and there were no complications associated with the procedure. CONCLUSION Successful implantation of DDDR Medtronic ADVISA MRI safe ( pt can have MRI). arrangement has been made for F/u in PPM clinic at [facility]. CC; drs. Chang/ Ridge.
[2017-11-19 05:41] VITALS: TEMP 97.5; O2SAT 94
--- NOTE | 2017-11-19 05:55 | CP.PCM.PN ---
Subjective - Date & Time of Evaluation Date of Evaluation: 11/19/17 Time of Evaluation: 07:00 - Subjective Subjective: Seen and examined by me and Dr. Sabillon Reason for consultation and follow up: 66 year old, admitted for chest pain most likely secondary to pneumonia, Telemetry showed multiple pauses, 5-6 seconds pauses. Status post permanent pacemaker 11/18/[address] Lopez Subjective: doing okay, denies chest pain and denies shortness of breath, mild pain at PPM insertion site Objective - Vital Signs/Intake and Output Vital Signs (last 24 hours): Temp Pulse Resp BP Pulse Ox 97.5 F L 71 18 107/70 94 L 11/19/17 05:40 11/19/17 05:40 11/19/17 05:40 11/19/17 05:40 11/19/17 05:40 Intake and Output: 11/18/17 11/19/17 18:59 06:59 Intake Total 0 Output Total 0 Balance 0 - Medications Medications: Current Medications Acetaminophen (Tylenol 325mg Tab) 650 mg PO Q6H PRN PRN Reason: Fever >100.4 F Doxycycline Hyclate (Doryx) 100 mg PO Q12 [facility] Last Admin: 11/18/17 22:20 Dose: 100 mg Ceftriaxone Sodium (Rocephin 1 Gram Ivpb) 1 gm in 100 mls @ 100 mls/hr IVPB DAILY [facility] PRN Reason: Protocol Last Admin: 11/18/17 13:14 Dose: 100 mls/hr Naproxen (Anaprox Ds) 550 mg PO BID [facility] Last Admin: 11/18/17 18:38 Dose: 550 mg Pantoprazole Sodium (Protonix Ec Tab) 40 mg PO 0630 [facility] Last Admin: 11/18/17 05:56 Dose: 40 mg - Labs Labs: 11/18/17 07:00 11/18/17 07:00 PT 11.6 SECONDS (9.4-12.5) 11/15/17 03:28 INR 1.02 (0.93-1.08) 11/15/17 03:28 APTT 31.0 Seconds (25.1-36.5) 11/15/17 03:28 - Constitutional Appears: Well, No Acute Distress - Head Exam Head Exam: NORMAL INSPECTION, NORMOCEPHALIC - Eye Exam Eye Exam: Normal appearance Pupil Exam: NORMAL ACCOMODATION - ENT Exam ENT Exam: Mucous Membranes Moist, Normal Exam - Cardiovascular Exam Cardiovascular Exam: REGULAR RHYTHM, +S1, +S2 Additional comments: left subclavian PPM site with tenderness, no hematoma, some dark bluish discoloration of skin otherwise no bleeding. - GI/Abdominal Exam GI & Abdominal Exam: Soft, Normal Bowel Sounds - Extremities Exam Extremities Exam: Full ROM, Normal Capillary Refill, Normal Inspection - Neurological Exam Neurological Exam: Alert, Awake, Oriented x3 - Psychiatric Exam Psychiatric exam: Normal Affect, Normal Mood - Skin Skin Exam: Intact, Normal Color, Warm Assessment and Plan - Assessment and Plan (Free Text) Assessment: Impression: 66 year old, admitted for chest pain most likely secondary to pneumonia, Telemetry showed multiple pauses, 5-6 seconds pauses,started on Dopamine at 2.5 mcg/kg/min. Lyme titer negative. Normal Stress test 11/17/17, LVEF 60%, Normal myocardial perfusion, Sick sinus syndrome .Had permanent pacemaker insertion yesterday 11/18/17- Medtronic DDDR by Dr. Lopez Plan: Stable cardiac status May discharge home today Follow up with the office in one week (Dr. Lopez) Follow up with PPM clinic in [facility] Continue current medications Plan and treatment discussed with Dr. Sabillon
[2017-11-19] MEDS: Pantoprazole 40 mg EC Tab PO SCH (06:04)
--- NOTE | 2017-11-19 09:17 | RAD ---
HISTORY: Post Pacemaker COMPARISON: 11/15/2017 FINDINGS: LUNGS: No active pulmonary disease. PLEURA: No significant pleural effusion identified, no pneumothorax apparent. CARDIOVASCULAR: Normal. OSSEOUS STRUCTURES: No significant abnormalities. VISUALIZED UPPER ABDOMEN: Normal. OTHER FINDINGS: Dual lead pacemaker IMPRESSION: No active disease.
--- NOTE | 2017-11-19 09:25 | PN ---
DATE: 11/18/2017 Addendum to the initial progress noted dictated by Tri Soler, our CRM CONSULTANT. REASON FOR DICTATION: The patent is having second thought and does want to get pacemaker. The patient was scheduled for pacemaker today because the patient has multiple pauses before the patient was started on dopamine. Yesterday, the patient underwent a stress test that was normal. No reversible ischemia. So the patient was scheduled supposed to have at 9:30, but the patient does not want to come to the farm laborer, so went up and talked to the patient and the patient's Pat. Explained in length, wanted to see the chart of multiple pauses, which I showed it to the patient. The patient says that he evidence before you put the pacemaker. After length of discussion, the patient was partially agreeable, but still they were thinking, so we will hold the pacemaker now, although the patient ate the breakfast because he does not want it done and I mentioned if he change his mind and wanted a pacemaker, we will do at around 2 o'clock. Awaiting for the final result. Until, we will continue dopamine. The patient's also wanted to discontinue the dopamine and give a try heart rate gets better, which I told is very dangerous. I cannot do that because the patient can go into heart block and could be very devastating and can be coded. She initially wanted to take the chance, but later on she wanted to let continue the dopamine and they are deciding. Once they make a decision, we will do accordingly. If they wanted the pacemaker, we will put in the afternoon. Dr. Chang is also included in the discussion and I am waiting for the response. Rosalio Lopez MD cc: Stella Chang MD
[2017-11-19] MEDS: cefTRIAXone 1 gm 1 GM/100 ML BAG IVPB SCH (09:40)
[2017-11-19] MEDS: Naproxen 550 mg Tab PO SCH (09:41)
--- NOTE | 2017-11-19 12:18 | RAD ---
HISTORY: Post-pacemaker COMPARISON: 11/18/2017 TECHNIQUE: Chest PA and lateral FINDINGS: LUNGS: No active pulmonary disease. PLEURA: No significant pleural effusion identified. No pneumothorax apparent. CARDIOVASCULAR: Normal. OSSEOUS STRUCTURES: No significant abnormalities. VISUALIZED UPPER ABDOMEN: Normal. OTHER FINDINGS: Dual lead pacemaker IMPRESSION: No active disease.
[2017-11-19 13:16] VITALS: BP 125/85; PULSE 84; RESP 20
--- NOTE | 2017-11-19 17:27 | CP.PCM.PN ---
Subjective - Date & Time of Evaluation Date of Evaluation: 11/19/17 Time of Evaluation: 11:25 - Subjective Subjective: Feeling better, received pacemaker yesterday, no fevers, not in distress. Objective - Vital Signs/Intake and Output Vital Signs (last 24 hours): Temp Pulse Resp BP Pulse Ox 97.5 F L 71 18 107/70 94 L 11/19/17 05:40 11/19/17 05:40 11/19/17 05:40 11/19/17 05:40 11/19/17 05:40 Intake and Output: 11/19/17 11/19/17 06:59 18:59 Intake Total 660 Balance 660 - Medications Medications: Current Medications Acetaminophen (Tylenol 325mg Tab) 650 mg PO Q6H PRN PRN Reason: Fever >100.4 F Doxycycline Hyclate (Doryx) 100 mg PO Q12 [facility] Last Admin: 11/19/17 09:41 Dose: 100 mg Ceftriaxone Sodium (Rocephin 1 Gram Ivpb) 1 gm in 100 mls @ 100 mls/hr IVPB DAILY [facility] PRN Reason: Protocol Stop: 11/20/17 10:59 Last Admin: 11/19/17 09:40 Dose: 100 mls/hr Naproxen (Anaprox Ds) 550 mg PO BID [facility] Last Admin: 11/19/17 09:41 Dose: 550 mg Pantoprazole Sodium (Protonix Ec Tab) 40 mg PO 0630 [facility] Last Admin: 11/19/17 06:04 Dose: 40 mg - Labs Labs: 11/18/17 07:00 11/18/17 07:00 PT 11.6 SECONDS (9.4-12.5) 11/15/17 03:28 INR 1.02 (0.93-1.08) 11/15/17 03:28 APTT 31.0 Seconds (25.1-36.5) 11/15/17 03:28 - Constitutional Appears: Chronically Ill - Head Exam Head Exam: NORMAL INSPECTION - Neck Exam Neck Exam: absent: Meningismus - Respiratory Exam Respiratory Exam: Decreased Breath Sounds - Cardiovascular Exam Cardiovascular Exam: +S1, +S2 - GI/Abdominal Exam GI & Abdominal Exam: Soft. absent: Tenderness Assessment and Plan - Assessment and Plan (Free Text) Plan: Assessment Rule out bilateral community-acquired pneumonia S/P pacemaker placement Plan on Rocephin and Zithromax day 3 - can be switched to PO antibiotics when ready for discharge to complete the 7 day course
--- NOTE | 2017-11-20 02:25 | DS ---
HISTORY OF PRESENT ILLNESS: The patient is 66-year-old, who came in with left-sided chest pain, going through his chest, towards the back. He was found to have lingular infiltrate and pleural infiltrate. He, during his stay on telemetry, was found to have pauses, initially 3 to 4 seconds and later on 5 to [address] Lopez had a long discussion with the patient's family and the patient himself. Initially, he was reluctant and he agreed to have a pacemaker placed that he has been placed yesterday, doing well. PHYSICAL EXAMINATION: GENERAL: He is awake, alert, oriented, communicative. VITAL SIGNS: He is afebrile, pulse 71, respirations 18, blood pressure 107/70. LUNGS: Bilateral good airflow. No rhonchi or crackles. HEART: S1 and S2 audible. ABDOMEN: Soft, nontender. No rebound, no guarding. NEUROLOGICAL: The patient is awake, alert, oriented, communicative. LABORATORY DATA: WBC is 8.0, hemoglobin 13.6, hematocrit 40.3, platelets 262. Chemistry: Sodium 142, potassium 4.1, chloride 105, CO2 of 26, BUN 15, creatinine 0.9, blood sugar 199. LFTs are within normal limits. Lyme titer is negative. Flu test is negative. X-ray chest post-procedure, unremarkable for any pneumothorax. Patient also had a stress test done that was unremarkable. ASSESSMENT: 1. Community-acquired pneumonia. 2. Status post pacemaker placement because of episodes of multiple pauses and complete heart block. PLAN: Patient is going to be discharged today. He is being discharged on doxycycline 100 twice a day for 5 days, Vantin 100 b.i.d. for 7 days. He will follow up with PMD and he will follow up with Dr. Lopez. Setlla Chang MD
--- NOTE | 2017-11-20 10:54 | CARD ---
APPROVED REPORT EKG Measurement Heart [id number] <Conclusion> Normal sinus rhythm Normal ECG No change
== END 2017-11-19 13:31 | disposition home or self-care (01) | DRG 194 ==
LOC: ED 03:16 → ERH 05:40 → 5RNO 07:32 → ERH 07:44 → 3RNO 15:36 → 3RSO 18:23 → OBSVTOIN 11-16 16:20 → 3RSO 11-16 21:18
PROVIDERS: ADMIT Internal Medicine; ATTEND Internal Medicine
PROC: 0JH606Z Insertion of Pacemaker, Dual Chamber into Chest Subcutaneous Tissue and Fascia, Open Approach (ICD-10-PCS; principal; 2017-11-18)
PROC: 02H63JZ Insertion of Pacemaker Lead into Right Atrium, Percutaneous Approach (ICD-10-PCS; 2017-11-18)
PROC: 02HK3JZ Insertion of Pacemaker Lead into Right Ventricle, Percutaneous Approach (ICD-10-PCS; 2017-11-18)
DX: J18.9 Pneumonia, unspecified organism (principal); I44.2 Atrioventricular block, complete; I49.5 Sick sinus syndrome